=== PATIENT | female | born 1930 | race Caucasian/White ===

== ENCOUNTER → 2021-02-11 | Outpatient (CLI) | payer MEDICARE ==
[~2021-02-11] VITALS: Ht 160 cm; Wt 67.1 kg
[~2021-02-11] MED LIST: ACCUPRIL40 MG PO; ASPIRIN EC81 MG PO; CALCIUM + VITA1 EACH PO; FOSAMAX70 MG PO; HYDROCHLOROTHIA25 MG PO; LEVATOL20 MG PO; LEVOTHYROXINE50 MCG PO; LIVALO4 MG PO; MIRALAX17 GM PO; MULTIVITAMINS1 EAC1 PO; NITROSTAT 0.40.4 MG SL; NORCO 5-325 TA1 EACH PO; PROTONIX40 MG PO; TYLENOL 325MG325 MG PO
== END ==
LOC: OPSV 10:00
DX: M81.0 Age-related osteoporosis without current pathological fracture (principal); M48.56XA Collapsed vertebra, not elsewhere classified, lumbar region, initial encounter for fracture
CPT/HCPCS: 73502; 96372

== ENCOUNTER → 2021-08-19 | Outpatient (CLI) | payer MEDICARE ==
[~2021-08-19] VITALS: Ht 160 cm; Wt 63.0 kg
== END ==
LOC: OPSV 14:00
DX: S32.020A Wedge compression fracture of second lumbar vertebra, initial encounter for closed fracture (principal); M81.0 Age-related osteoporosis without current pathological fracture
CPT/HCPCS: 96372